=== PATIENT | female | born 2005 | race Caucasian/White ===

== ENCOUNTER 2024-06-15 15:01 | Emergency (ER) | payer OTHER, SELFPAY ==
[2024-06-15 15:03] VITALS: BP 124/73
[2024-06-15 15:06] VITALS: BMI 28.8
[2024-06-15 15:10] VITALS: BP 124/73
[2024-06-15 15:38] LABS: % Basophils 0.5 % (0-2); % Eosinophils 4.7 % (0-6); % Immature Granulocytes 0.3 % (0-0.5); % Lymphocytes 35.5 % (20.5-51.1); Absolute Basophils 0.1 10^3/uL (0-0.2); Absolute Eosinophils 0.5 10^3/uL (0-0.7); Absolute Lymphocytes 3.4 10^3/uL (1.2-3.4); Absolute Monocytes 0.6 10^3/uL (0.1-0.6); Absolute Neutrophils 5.1 10^3/uL (1.4-6.5); Hematocrit 37.5 % (37.0-47.0); Hemoglobin 13.2 g/dL (12.0-16.0); Mean Corp Hgb Conc. 35.2 g/dL (33.0-37.0); Mean Platelet Volume 8.9 fL (7.4-10.4); Nucleated Red Blood Cells % 0 %; Platelet Count 302 10^3/uL (130-400); Red Blood Cell Count 4.26 10^6/uL (4.20-5.40); Red Cell Dist. Width 12.4 % (11.5-14.5); White Blood Cell Count 9.7 10^3/uL (4.8-10.8)
[2024-06-15 15:40] LABS: ALT (SGPT) 26 U/L (0-35); AST (SGOT) 32 U/L (14-36); Albumin 4.2 g/dl (3.5-5.0); Alkaline Phosphatase 75 U/L (38-126); Blood Urea Nitrogen 9 mg/dl (7-17); Calcium 9.7 mg/dl (8.4-10.2); Carbon Dioxide 21 mmol/L (22-30); Chloride 104 mmol/L (98-107); Estimated Creatinine Clearance > 125 ml/min; Glucose 116 mg/dl (70-99); Magnesium 1.7 mg/dl (1.6-2.3); Potassium 3.8 mmol/L (3.5-5.1); Sodium 137 mmol/L (135-145); Total Bilirubin 0.5 mg/dl (0.2-1.3); Total Protein 6.9 g/dl (6.3-8.2); eGFR > 60.00
[2024-06-15 15:51] LABS: Troponin I < 0.012 ng/ml
[2024-06-15 15:58] LABS: HCG, Serum Qualitative Screen Negative
[2024-06-15 16:00] VITALS: BP 111/69
--- NOTE | 2024-06-15 16:11 | ED.GENMED ---
History of Present Illness
General
Chief Complaint: Heart Rate Problem
Source: patient and family
Exam Limitations: none
Time Seen by Provider: 06/15/24 15:22
Nursing documentation reviewed up to this point in time: agreed with
History of Present Illness
History of Present Illness:
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
approximately 2 hours prior to arrival. Patient unfortunately has had number of similar symptoms in the past, especially when her potassium level had been low. Patient currently does take outpatient potassium supplements. Denies recent illness.
Denies back pain. Denies fever or chills. Denies nausea or vomiting. Denies dizziness. Denies leg pain or swelling. Denies recent travel. In addition, since arrival, patient has noted painful sensation with rash underneath left breast.
Review of Systems
Review of Systems
Allergies reviewed?: Yes
All Other Systems: ROS reviewed and negative except as documented in HPI and ROS
Constitutional: Reports no symptoms
EENT: Reports no symptoms; Denies sore throat or runny nose
Respiratory: Reports trouble breathing
Cardiac: Reports chest pain and palpitations; Denies diaphoresis
ABD/GI: Reports no symptoms; Denies nausea or vomiting
: Reports no symptoms
Musculoskeletal: Reports no symptoms
Skin: Reports no symptoms
Neurological: Reports no symptoms
Phy Exam
Physical Exam
Physical Exam:
Physical Exam
General: mild distress, not acutely ill. afebrile
Head: nc/at. eomi
Neck: supple. no meningeal signs.
Heart: s1/s2 regular rate and rhythm, no murmur. equal radial pulses.
Lungs: no acute respiratory distress. clear bilaterally.
Abdomen: normal bowel sounds. not tender.
Neuro: alert and oriented. no focal neurological deficits
Skin: erythematous, macular rash noted under left breast with mild tenderness to palpation.
Psychiatric: well kept. interactive and cooperative
Extremities: no edema. no calf tenderness.
Scores
Heart Score for Chest Pain Patients
STEMI patient?: Not applicable
Course
Orders/Labs/Results
Orders:
Orders
06/15/24 15:05
EKG [Electrocardiogram (*1)] Urgent
Reason for Study: Tachycardia
EKG- Treatment ONCE
06/15/24 15:15
IV Insert/Care/Rem.- Treatment PRN
06/15/24 15:20
Complete Blood Count/With Diff Urgent
Comprehensive Metabolic Panel Urgent
HCG, Serum Qualitative Screen Urgent
Comment: ADD ON
Magnesium Urgent
TSH Reflex To Free T4 Urgent
Comment: ADD ON
Troponin I Urgent
06/15/24 15:31
Add On- LAB Urgent
Tests Added?: serum B-HCG, qualitative
CR Chest - 2 Views Urgent
Comment:
Reason For Exam: chest pain
06/15/24 16:08
Add On- LAB Urgent
Tests Added?: TSH to reflex Free T4
06/15/24 16:09
Diphenhydramine [Benadryl] 12.5 mg IV NOW STA
Ketorolac [Toradol] 15 mg IV NOW STA
06/15/24 16:15
D-Dimer Urgent
Abnormal Lab Results
06/15/24
15:20
Carbon Dioxide 21 L mmol/L
(22-30)
Glucose 116 H mg/dl
(70-99)
06/15/24 15:20
06/15/24 15:20
Vital Signs
Initial and Last Documented VS:
Initial Vital Signs
BP
124/73
06/15/24 15:03
Last Documented Vital Signs
Temp Pulse Resp BP Pulse Ox
98.2 F 83 18 114/59 97
06/15/24 15:10 06/15/24 17:45 06/15/24 17:45 06/15/24 17:00 06/15/24 17:30
MDM/Problems Addressed
MDM/Problems Addressed:
This patient with an unremarkable workup in ED, along with resolution of presenting rash after treatment with Benadryl and Toradol. 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
next week.
*EKG
Interpreted by ED Provider?: Yes
EKG Intrepretation Date: 06/15/24
Heart Rate: 79
Rate: normal
Rhythm: sinus
[place]: normal axis
Interval: normal interval
Ischemia: T-wave inversion
*Critical Care Note
Total Time (30-74mins, 75-104mins- exclusive of procedures): Not Applicable
ED Attending Note
-
Portions of this chart may have been created with voice recognition software.� Occasional wrong word or��sound alike� substitutions may have occurred due to the inherent limitations of voice recognition software.
Discharge Plan
Departure
Patient Disposition: Home (Routine Discharge)
Date of Disposition: 06/15/24
Time of Disposition: 17:57
Patient with high blood pressure during this ER visit?: No
Discharge Problem:
Palpitations
Instructions: Palpitations (DC)
Prescriptions:
No Action
magnesium 100 mg Tablet
PO DAILY
Rx Instructions:
unsure of dose
fluoxetine [Prozac] 20 mg Capsule
30 mg PO DAILY
etonogestrel-ethinyl estradiol [NuvaRing] 0.12-0.015 mg/24 hr Ring
1 vag ring VAGINAL Q4W
potassium 20 mg Tablet,Chewable
PO
Rx Instructions:
unknown dose
methylphenidate HCl [Ritalin LA] 20 mg Capsule,Er Biphasic 50-50
20 mg PO DAILY
metoprolol tartrate 25 mg Tablet
25 mg PO BID
Referrals:
Merry Modi DO [Family Provider] -
Activity Restrictions/Additional Instructions:
As discussed, please follow up with your primary care physician and/or squad sergeant for continual evaluation and treatment
Interventions
Interventions:
*Risk Screen - Suicide Last Done: 06/15/24 15:14
*General Assessment Last Done: 06/15/24 15:14
*Neglect/Abuse Screening Last Done: 06/15/24 15:14
ED- Fall Risk Assessment Last Done: 06/15/24 18:07
*ED COVID-19 Vaccine History Last Done: 06/15/24 15:14
*Nursing Disposition Last Done: 06/15/24 18:07
ED- Cardiac Assessment Last Done: 06/15/24 17:06
ED- Pulmonary Assessment Last Done: 06/15/24 17:06
Discharge Date and Time
Discharge Date/Time: 06/15/24 18:08
Print Language: SUDANESE
[2024-06-15] MEDS: BENADRYL 12.5 MG IV (16:19)
[2024-06-15] MEDS: TORADOL 15 MG IV (16:19)
[2024-06-15 16:35] LABS: D-Dimer 0.31 ug/mlFEU (0.00-0.50)
[2024-06-15 17:00] VITALS: BP 114/59
[2024-06-15 17:02] LABS: TSH Reflex To Free T4 1.75 uIU/ml (0.47-4.68)
== END 2024-06-15 18:08 | disposition home or self-care (01) ==
LOC: EMR 15:01
PROVIDERS: EMERGENCY PHYSICIAN Emergency Medicine; FAMILY PHYSICIAN Family Medicine
DX: R00.2 Palpitations (principal)
CPT/HCPCS: 99285; 96374; 96375; 71046; 80053; 83735; 84443; 84484; 84703; 85025; 85379; 93005